=== PATIENT | female | born 1980 | race Asian ===

== ENCOUNTER 2020-04-28 00:08 | Emergency (ER) | payer OTHER ==
[2020-04-28 00:31] VITALS: BP 161/94; PULSE 84; TEMP 98.8; BMI 34.9
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
--- OUTSIDE RECORDS SUMMARY | 2020-04-28 04:56 | XMS ---
:1980 [facility] Providers Name Role Phone MD Leisa Guevara Unavailable Unavailable Pancho Pringle MD Unavailable Unavailable Pancho Pringle MD Unavailable Unavailable Pancho Pringle MD Unavailable Unavailable Pancho Pringle MD Unavailable Unavailable Pancho Pringle MD Unavailable Unavailable Re-disclosure Warning The records that you are about to access may contain information from federally- assisted alcohol or drug abuse programs. If such information is present, then the following federally mandated warning applies: This information has been disclosed to you from records protected by federal confidentiality rules (42 CFR part 2). The federal rules prohibit you from making any further disclosure of this information unless further disclosure is expressly permitted by the written consent of the person to whom it pertains or as otherwise permitted by 42 CFR part 2. A general authorization for the release of medical or other information is NOT sufficient for this purpose. The Federal rules restrict any use of the information to criminally investigate or prosecute any alcohol or drug abuse patient.The records that you are about to access may contain highly sensitive health information, the redisclosure of which is protected by Article 27-F of the [facility] Public Health law. If you continue you may haveaccess to information: Regarding HIV / AIDS; Provided by facilities licensed or operated by the [facility] Office of Mental Health; or Provided by the [facility] Office for People With Developmental Disabilities. If such information is present, then the following [facility] mandated warning applies: This information has been disclosed to you from confidential records which are protected by state law. State law prohibits you from making any further disclosure of this information without the specific written consent of the person to whom it pertains, or as otherwise permitted by law. Any unauthorized further disclosure in violation of state law may result in a fine or correction sentence or both. A general authorization for the release of medical or other information is NOT sufficient authorization for further disclosure. Encounters Encounter Providers Location Date Indications Data Source(s ) Outpatient Attender[facility] 02/03/2020 SHANNEN Guevara 04:30:00 PM [facility] EDT - 02/03/2020 11:59:00 PM EDT Patient discharged. Outpatient Attender: [facility] 01/07/2020 01:44:00 TOÑO Pringle MD PM EDT - 01/07/2020 [facility] 11:59:00 PM EDT Patient discharged. Outpatient Attender: [facility] 12/23/2019 02:15:33 TOÑO Pringle MD PM EDT Hospital Admission cancelled. Disregard status an d admitted date. Outpatient Attender: [facility] 11/04/2019 03:12:23 TOÑO Pringle MD PM EDT - 11/05/2019 [facility] 11:59:00 PM EDT Patient discharged. Medications Medication Brand Start Product Dose Route Administrative Pharmacy [facility] Indications Reaction Description Data Name Date Form Instructions Instructions Source(s) Diphenhydra diphen [id number] active Night Time [facility] mine hydrAM 2015 {tab( [facility] Hydrochlori INE 25 12:58: s)} Syst em de 25 MG mg 43 AM Oral Tablet oral EDT diphenhydrA tablet MINE 25 mg oral tablet May cause drowsiness. Alcohol may inten sify this effect. Use care when operating dangerous machinery.Obtain medical advic e before taking any non-prescription drugs as some may affect the action of this medic ation. Diphenhydramine diphenhydrAMINE 04/13/2016 1 C04436 activ e Night Time [facility] Hydrochloride 25 25 mg oral 12:58:43 AM {tab(s)} [facility] MG Oral Tablet tablet EDT Sys tem diphenhydrAMINE 25 mg oral tablet May cause drowsiness. Alcohol may inten sify this effect. Use care when operating dangerous machinery.Obtain medical advic e before taking any non-prescription drugs as some may affect the action of this medic ation. Ondansetron 4 ondansetron 4 12/23/2014 1 [id number] completed Ondansetron [facility] MG mg oral tablet, 02:14:47 AM {tab(s)} Hydrochloride Health Disintegrating disintegrating EDT System Oral Tablet ondansetron 4 mg oral tablet, disintegrating Ibuprofen 600 IBU 600 mg oral 12/22/2014 1 [id number] complet ed IBU [facility] MG Oral Tablet tablet 04:43:18 PM {tab(s)} Health [Ibu] IBU 600 EDT System mg oral tablet Do not take this drug if you are pregnan t.It is very important that you take or use this exactly as directed. Do not skip d oses or discontinue unless directed by your doctor.May cause drowsiness or dizziness .Obtain medical advice before taking any non-prescription drugs as some may affec t the action of this medication.Take with food or milk. Insurance Providers Payer name Policy type / Policy ID Covered Covered democrat's Policy Plan Coverage type democrat ID relationship to Chao Information chao PENDING WC/NF [id number] SP [id number] [facility] [id number] [facility] 1199 Commercial [id number] Occupational Commercial [id number] Health NR Problems, Conditions, and Diagnoses Code Display Name Description Problem Type Effective Data Sour ce(s) Dates Z86.19 Personal history History of Diagnosis 02/15/2020 S - Ne w of other opportunistic 12:00:00 AM [facility] infectious and infections [facility] parasitic diseases Z09 Encounter for Encounter for Diagnosis 02/15/2020 S - Ne w follow-up examination 12:00:00 AM [facility] examination after following surgery [facility] completed treatment for conditions other than malignant neoplasm Z20.828 Contact with and Close exposure to Diagnosis 02/03/2020 M [facility] - New (suspected) severe acute 04:30:00 PM [facility] exposure to other respiratory EDT Hospit al viral communicable syndrome diseases coronavirus 2 (SARS-CoV-2) B34.2 Coronavirus Coronavirus Diagnosis 01/07/2020 [facility] - New infection, infection, 01:44:00 PM [facility] unspecified unspecified EDT Hospital Surgeries/Procedures Procedure Description Date Indications Data Source(s) XR Chest PA and Left Lateral 02/03/2020 [facility] XR Chest PA and Left Lateral 05:17:00 PM System EDT - 02/03/2020 05:17:00 PM EDT XR Chest PA and Left Lateral 02/12/2017 [facility] XR Chest PA and Left Lateral 01:52:00 AM System EDT - 02/12/2017 01:52:00 AM EDT Computerized axial tomography 02/12/2017 [facility] of brain (procedure) 01:32:00 AM System EDT - 02/12/2017 01:32:00 AM EDT Electrocardiographic 02/12/2017 [facility] procedure (procedure) 01:28:48 AM System EDT - 02/12/2017 01:40:00 AM EDT XR Chest Single AP view 02/12/2017 [facility] 01:28:48 AM System EDT - 02/12/2017 01:28:00 AM EDT US Renal US Renal 04/26/2016 [facility] 04:19:00 PM System EDT - 04/26/2016 04:19:00 PM EDT US Abdomen Complete US 03/23/2016 [facility] Abdomen Complete 12:12:00 AM System EDT - 03/23/2016 12:12:00 AM EDT Urine Test POCT 03/22/2016 [facility] 09:17:27 PM System EDT - 03/22/2016 10:07:27 PM EDT Urinalysis + Microscopic 03/22/2016 [facility] Examination 09:17:27 PM System EDT - 03/22/2016 09:24:00 PM EDT Urine Test POCT 12/23/2014 [facility] 12:55:05 AM System EDT - 12/23/2014 01:01:10 AM EDT Culture Bacteria Throat 12/22/2014 [facility] 04:01:00 PM System EDT - 12/22/2014 04:01:00 PM EDT Results ID Date Data Source [id number] 02/09/2020 02:18:19 AM EDT [facility] Name Value Range Interpretation Description Data Sup porting Code Source(s) Document(s ) StrepGroupADirectAnt Negative Normal (applies Strep Group [facility] igen to non-numeric A Direct Health results) Antigen System Method: ImmunochromatographicRapid Strep Grp A preliminary test only!!! Final result will be confirmed by culture. ID Date Data Source [id number] 02/09/2020 02:18:19 AM EDT [facility] Name Value Range Interpretation Description Data Sup porting Code Source(s) Document(s ) Appearance of HAZY Normal (applies Urine [facility] Urine to non-numeric Appearance Health results) System Color Yellow Normal (applies Color [facility] to non-numeric Health results) System Protein 30 mg/dl Normal (applies Protein [facility] [Mass/volume] in to non-numeric Health Serum or Plasma results) System Glucose,UA NEG Normal (applies Glucose, UA [facility] to non-numeric Health results) System pH.. 6.0 Normal (applies pH.. [facility] {pH_unit to non-numeric Health s} results) System Specific gravity 1.025 Normal (applies Urine Specific [facility] of Urine to non-numeric [facility] results) System BilirubinUrine NEG Normal (applies Bilirubin [facility] to non-numeric Urine Health results) System Ketones NEG Normal (applies Ketones UA [facility] [Mass/volume] in to non-numeric Health Urine results) System Urobilinogen < 2.0 Normal (applies Urobilinogen [facility] [Mass/volume] in to non-numeric UA Health Urine results) System Reference Range: Negative or <=2.0 RedBloodCells 96 {/HPF} Normal (applies Red Blood Cells [facility] to non-numeric Health System results) Nitrate+Nitrite Negative Normal (applies Nitrite [facility] [Mass/volume] in to non-numeric Health S ystem Unspecified results) specimen Leukocytes 3 {/HPF} Normal (applies White Blood Cells [facility] [#/volume] in to non-numeric Health Syst em Unspecified results) specimen by Automated count Leukocyte esterase Trace Abnormal (applies Leukocyte Est erase [facility] [Units/volume] in to non-numeric Concentration [facility] System Urine results) Epithelial cells 2 {/HPF} Normal (applies Epithelial Cells [facility] [Presence] in to non-numeric Health Syst em Unspecified results) specimen by Wet preparation Mucus OCC Normal (applies Mucus [facility] to non-numeric Health System results) Bacteria [Presence] FEW Normal (applies Bacteria [facility] in Unspecified to non-numeric Health Sys tem specimen results) UrineBlood LG(3+) Abnormal (applies Urine Blood [facility] to non-numeric Health System results) ID Date Data Source [id number] 02/09/2020 02:18:19 AM EDT [facility] Name Value Range Interpretation Description Data Sup porting Code Source(s) Document(s ) Erythrocytes 4.02 Below low normal RBC Count [facility] [#/volume] in {10^6_uL Health Blood by } System Automated count Leukocytes 12.7 Above high WBC Count [facility] [#/volume] in {10^3_uL normal Health Unspecified } System specimen by Automated count Hemoglobin 12.6 Normal (applies Hemoglobin [facility] [Mass/volume] in {gm/dL} to non-numeric Health Blood results) System Erythrocyte mean 89.1 fl Normal (applies MCV [facility] corpuscular to non-numeric Health volume [Entitic results) System volume] by Automated count Hematocrit 35.8 % Below low normal Hematocrit [facility] [Volume Health Fraction] of System Blood Erythrocyte mean 35.2 Above high MCHC [facility] corpuscular {gm/dL} normal Health hemoglobin System concentration [Mass/volume] by Automated count Erythrocyte 12.5 % Normal (applies RDW-CV [facility] distribution to non-numeric Health width [Entitic results) System volume] by Automated count Erythrocyte mean 31.3 pg Above high MCH [facility] corpuscular normal Health hemoglobin System [Entitic mass] by Automated count Platelet mean 11.6 fl Normal (applies MPV [facility] volume [Entitic to non-numeric Health volume] in Blood results) System by Automated count Nucleated 0.0 Normal (applies NRBC % [facility] erythrocytes {/100_WB to non-numeric Health [#/volume] in C} results) System Body fluid Platelets 155 Normal (applies Platelet Count [facility] [#/volume] in {10^3_uL to non-numeric Health Plasma by } results) System Automated count Neutrophils 9.8 Above high Neutrophil # [facility] [#/volume] in {10^3_uL normal Health Body fluid } System NRBC# 0.00 Normal (applies NRBC # [facility] {10^6_uL to non-numeric Health } results) System Neutrophils/100 77.1 % Above high Neutrophil % [facility] leukocytes in normal Health Blood by System Automated count Lymphocytes 15.1 % Normal (applies Lymphocyte % [facility] [#/volume] in to non-numeric Health Blood by results) System Automated count Monocytes/100 6.6 % Normal (applies Monocyte % [facility] leukocytes in to non-numeric Health Blood results) System Lymphocyte 1.9 Normal (applies Lymphocyte # [facility] percent {10^3_uL to non-numeric Health differential } results) System count (procedure) Eosinophils/100 0.6 % Above high Eosinophil % [facility] leukocytes in normal Health Unspecified System specimen Eosinophils 0.08 Normal (applies Eosinophil # [facility] [#/volume] in {10^3_uL to non-numeric Health Blood } results) System Monocytes 0.8 Normal (applies Monocyte # [facility] [#/volume] in {10^3_uL to non-numeric Health Blood by Manual } results) System count ImmatureGranuloc 0.3 % Normal (applies Immature [facility] ytes% to non-numeric Granulocytes % Health results) System Basophils 0.04 Normal (applies Basophil # [facility] [#/volume] in {10^3_uL to non-numeric Health Blood by } results) System Automated count Basophils/100 0.3 % Normal (applies Basophil % [facility] leukocytes in to non-numeric Health Unspecified results) System specimen by Manual count ImmatureGranuloc 0.04 Normal (applies Immature [facility] ytes# {10^3_uL to non-numeric Granulocytes # Health } results) System ID Date Data Source [id number] 02/09/2020 02:18:19 AM EDT [facility] Name Value Range Interpretation Description Data Sup porting Code Source(s) Document(s ) Potassium 3.7 Normal (applies Potassium, [facility] [Mass/volume] in mmol/L to non-numeric Serum Health Serum or Plasma results) System Sodium 139 Normal (applies Sodium, Serum [facility] [Moles/volume] in mmol/L to non-numeric Health Serum or Plasma results) System Chloride 105 Normal (applies Chloride, [facility] [Moles/volume] in mmol/L to non-numeric Serum Health Serum or Plasma results) System Carbon dioxide, 24.1 Normal (applies CO2, Serum [facility] total mmol/L to non-numeric Health [Moles/volume] in results) System Serum or Plasma TotalProtein 6.3 Below low normal Total Protein [facility] mg/dl Health System Glucose 119 Above high Glucose, [facility] [Mass/volume] in mg/dL normal Serum Health Serum or Plasma System Urea nitrogen 11 Normal (applies Blood Urea [facility] [Mass/volume] in mg/dl to non-numeric Nitrogen, Health Serum or Plasma results) Serum System Creatinine 0.83 Normal (applies Creatinine, [facility] [Mass/volume] in mg/dl to non-numeric Serum Health Serum or Plasma results) System Alkaline 35 Below low normal Alkaline [facility] phosphatase {IU/L} Phosphatase, Health isoenzymes Serum System [Enzymatic activity/volume] in Serum or Plasma by Heat stability Bilirubin.total 0.5 Normal (applies Bilirubin, [facility] [Mass/volume] in mg/dl to non-numeric Serum Total Health Serum or Plasma results) System Aspartate 18 Normal (applies Aspartate [facility] aminotransferase {IU/L} to non-numeric Transaminase, Heal th [Enzymatic results) Serum System activity/volume] in Serum or Plasma by With P-5'-P DirectBilirubin 0.1 Normal (applies Direct [facility] mg/dl to non-numeric Bilirubin Health results) System Albumin 4.1 Normal (applies Albumin, [facility] [Mass/volume] in {gm/dl} to non-numeric Serum Health Serum or Plasma results) System I.Phosphorus 4.0 Normal (applies I. Phosphorus [facility] mg/dl to non-numeric Health results) System Alanine 22 Normal (applies Alanine [facility] aminotransferase {IU/L} to non-numeric Aminotransfer Heal th [Enzymatic results) ase, Serum System activity/volume] in Serum or Plasma Calcium 8.9 Normal (applies Calcium, [facility] [Mass/volume] in mg/dl to non-numeric Total Serum Health Serum or Plasma results) System Urate 4.8 Normal (applies Uric Acid, [facility] [Mass/volume] in mg/dl to non-numeric Serum Health Serum or Plasma results) System Anion gap in Serum 9.90 Normal (applies Anion Gap [facility] or Plasma mmol/L to non-numeric Health results) System A/GRatio 1.86 Normal (applies A/G Ratio [facility] to non-numeric Health results) System Glomerular 79.33 Normal (applies GFR [facility] filtration to non-numeric Health rate/1.73 sq results) System M.predicted [Volume Rate/Area] in Serum or Plasma by Creatinine-based formula (CKD-EPI) eGFR will provide clinicians with a more accurate indicator of renal function then the serum creatinine. The eGFR is automa tically calculated from an empiric formula (endorsed by the National Kidney [employer] ion) which incorporates age, sex, and race.Clinicians may notice surprisingly low GFR's with serum creatinine valueswithin normal range- particularly in elderly wo men (with low muscle mass).In the hospital setting, the eGFR should add an element of safety in drug dosing, in assessing the risk of IV contrast administration, and in assessing vascular risk.The NKF staging system is as follows:Normal: eGFR >90 with no kidney markersStage 1: eGFR >90 with kidney markers*Stage 2: eGFR 60- 89Stage 3: eGFR 30-59Stage 4: eGFR 15-29Stage 5: eGFR <15 (usually requir ing dialysis)*Markers include: Proteinuria, Hematuria, abnormal imaging-studies, or other blood or urine test abnormalities ID Date Data Source [id number] 02/09/2020 02:18:19 AM EDT [facility] Name Value Range Interpretation Description Data Source(s ) Supporting Code Document(s ) Lipase 33 U/L Normal (applies to Lipase, Serum [facility] [Enzymatic non-numeric Health System activity/vo results) lume] in Serum or Plasma ID Date Data Source [id number] 02/09/2020 02:18:19 AM EDT [facility] Name Value Range Interpretation Description Data Sup porting Code Source(s) Document(s ) Erythrocytes 4.76 Normal (applies RBC Count [facility] [#/volume] in {10^6_uL to non-numeric Health Blood by } results) System Automated count Hemoglobin 14.9 Normal (applies Hemoglobin [facility] [Mass/volume] in {gm/dL} to non-numeric Health Blood results) System Leukocytes 14.4 Above high normal WBC Count [facility] [#/volume] in {10^3_uL Health Unspecified } System specimen by Automated count Hematocrit 41.6 % Normal (applies Hematocrit [facility] [Volume to non-numeric Health Fraction] of results) System Blood Erythrocyte mean 87.4 fl Normal (applies MCV [facility] corpuscular to non-numeric Health volume [Entitic results) System volume] by Automated count Erythrocyte mean 35.8 Above high normal MCHC [facility] corpuscular {gm/dL} Health hemoglobin System concentration [Mass/volume] by Automated count Erythrocyte 13.0 % Normal (applies RDW-CV [facility] distribution to non-numeric Health width [Entitic results) System volume] by Automated count Erythrocyte mean 31.3 pg Above high normal MCH [facility] corpuscular Health hemoglobin System [Entitic mass] by Automated count Platelet mean 11.1 fl Normal (applies MPV [facility] volume [Entitic to non-numeric Health volume] in Blood results) System by Automated count Platelets 226 Normal (applies Platelet [facility] [#/volume] in {10^3_uL to non-numeric Count Health Plasma by } results) System Automated count Nucleated 0.0 Normal (applies NRBC % [facility] erythrocytes {/100_WB to non-numeric Health [#/volume] in C} results) System Body fluid NRBC# 0.00 Normal (applies NRBC # [facility] {10^6_uL to non-numeric Health } results) System ID Date Data Source [id number] 02/09/2020 02:18:19 AM EDT [facility] System Name Value Range Interpretation Description Data Sup porting Code Source(s) Document(s ) Sodium 139 Normal (applies Sodium, Serum [facility] [Moles/volume] in mmol/L to non-numeric Health Serum or Plasma results) System Potassium 3.5 Normal (applies Potassium, [facility] [Mass/volume] in mmol/L to non-numeric Serum Health Serum or Plasma results) System Carbon dioxide, 21.0 Normal (applies CO2, Serum [facility] total mmol/L to non-numeric Health [Moles/volume] in results) System Serum or Plasma Chloride 104 Normal (applies Chloride, [facility] [Moles/volume] in mmol/L to non-numeric Serum Health Serum or Plasma results) System Glucose 87 Normal (applies Glucose, [facility] [Mass/volume] in mg/dL to non-numeric Serum Health Serum or Plasma results) System TotalProtein 7.6 Normal (applies Total Protein [facility] mg/dl to non-numeric Health results) System Urea nitrogen 9 mg/dl Normal (applies Blood Urea [facility] [Mass/volume] in to non-numeric Nitrogen, Health Serum or Plasma results) Serum System Creatinine 0.86 Normal (applies Creatinine, [facility] [Mass/volume] in mg/dl to non-numeric Serum Health Serum or Plasma results) System DirectBilirubin 0.1 Normal (applies Direct [facility] mg/dl to non-numeric Bilirubin Health results) System Bilirubin direct 0.7 Normal (applies Bilirubin, [facility] and total panel mg/dl to non-numeric Serum Total Health [Mass/volume] - results) System Serum or Plasma Alkaline 38 Below low normal Alkaline [facility] phosphatase {IU/L} Phosphatase, Health isoenzymes Serum System [Enzymatic activity/volume] in Serum or Plasma by Heat stability Aspartate 26 Normal (applies Aspartate [facility] aminotransferase {IU/L} to non-numeric Transaminase, Heal th [Enzymatic results) Serum System activity/volume] in Serum or Plasma by With P-5'-P Albumin 4.9 Normal (applies Albumin, [facility] [Mass/volume] in {gm/dl} to non-numeric Serum Health Serum or Plasma results) System Alanine 33 Normal (applies Alanine [facility] aminotransferase {IU/L} to non-numeric Aminotransfer [facility] th [Enzymatic results) ase, Serum System activity/volume] in Serum or Plasma I.Phosphorus 3.8 Normal (applies I. Phosphorus [facility] mg/dl to non-numeric Health results) System Calcium 9.8 Normal (applies Calcium, [facility] [Mass/volume] in mg/dl to non-numeric Total Serum Health Serum or Plasma results) System Urate 5.5 Normal (applies Uric Acid, [facility] [Mass/volume] in mg/dl to non-numeric Serum Health Serum or Plasma results) System A/GRatio 1.81 Normal (applies A/G Ratio [facility] to non-numeric Health results) System Anion gap in Serum 14.00 Normal (applies Anion Gap [facility] or Plasma mmol/L to non-numeric Health results) System Glomerular 75.57 Normal (applies GFR [facility] filtration to non-numeric Health rate/1.73 sq results) System M.predicted [Volume Rate/Area] in Serum or Plasma by Creatinine-based formula (CKD-EPI) eGFR will provide clinicians with a more accurate indicator of renal function then the serum creatinine. The eGFR is automa tically calculated from an empiric formula (endorsed by the National Kid[employer] ion) which incorporates age, sex, and race.Clinicians may notice surprisingly low GFR's with serum creatinine valueswithin normal range- particularly in elderly wo men (with low muscle mass).In the hospital setting, the eGFR should add an element of safety in drug dosing, in assessing the risk of IV contrast administration, and in assessing vascular risk.The NKF staging system is as follows:Normal: eGFR >90 with no kidney markersStage 1: eGFR >90 with kidney markers*Stage 2: eGFR 60- 89Stage 3: eGFR 30-59Stage 4: eGFR 15-29Stage 5: eGFR <15 (usually requir ing dialysis)*Markers include: Proteinuria, Hematuria, abnormal imaging-studies, or other blood or urine test abnormalities ID Date Data Source [id number] 02/09/2020 02:18:19 AM [facility] System Name Value Range Interpretation Description Data Sup porting Code Source(s) Document(s ) Color Colorless Normal (applies Color [facility] to non-numeric Health results) System Appearance of CLEAR Normal (applies Urine [facility] Urine to non-numeric Appearance Health results) System Specific gravity 1.005 Normal (applies Urine [facility] of Urine to non-numeric Specific Health results) [facility] Glucose,UA NEG Normal (applies Glucose, UA [facility] to non-numeric Health results) System pH.. 7.0 Normal (applies pH.. [facility] {pH_units} to non-numeric Health results) System BilirubinUrine NEG Normal (applies Bilirubin [facility] to non-numeric Urine [facility] results) System Protein NEG Normal (applies Protein [facility] [Mass/volume] in to non-numeric Health Serum or Plasma results) System Ketones NEG Normal (applies Ketones UA [facility] [Mass/volume] in to non-numeric Health Urine results) System Urobilinogen < 2.0 Normal (applies Urobilinogen [facility] [Mass/volume] in to non-numeric UA Health Urine results) System Reference Range: Negative or <=2.0 Leukocyte esterase NEG Normal (applies Leukocyte Marcelle ase [facility] [Units/volume] in to non-numeric Concentration Hea lt System Urine results) Nitrate+Nitrite Negative Normal (applies Nitrite [facility] [Mass/volume] in to non-numeric Health S ystem Unspecified specimen results) Epithelial cells 2 {/HPF} Normal (applies Epithelial Cells [facility] [Presence] in to non-numeric Health Syst em Unspecified specimen results) by Wet preparation RedBloodCells 19 {/HPF} Normal (applies Red Blood Cells [facility] to non-numeric Health System results) Leukocytes < 1 /HPF Normal (applies White Blood Cells Kaden vladimir [#/volume] in to non-numeric Health Syst em Unspecified specimen results) by Automated count UrineBlood MOD(2+) Abnormal (applies Urine Blood [facility] to non-numeric [facility] System results) Bacteria [Presence] FEW Normal (applies Bacteria [facility] in Unspecified to non-numeric Health Sys tem specimen results) ID Date Data Source [id number] 02/09/2020 02:18:19 AM EDT [facility] Name Value Range Interpretation Description Data Sup porting Code Source(s) Document(s ) aPTT in Blood 27.8 Normal (applies Activated [facility] by Coagulation {Seconds to non-numeric Partial Health assay } results) Thromboplastin System Time ID Date Data Source [id number] 02/09/2020 02:18:19 AM EDT [facility] Name Value Range Interpretation Description Data Sup porting Code Source(s) Document(s ) Prothrombintim 10.20 Normal (applies Prothrombin [facility](PT) {seconds to non-numeric time (PT) Health System } results) INR in Blood 0.91 Normal (applies INR Result [facility] by Coagulation {Ratio} to non-numeric Health Sys tem assay results) Normal = 0.7-1.1Therapeutic = 2.0-3.0Mec hanical Heart = 3.0-4.5 ID Date Data Source [id number] 02/09/2020 02:18:19 AM EDT [facility] System Name Value Range Interpretation Description Data Sup porting Code Source(s) Document(s ) Leukocytes 10.7 Normal (applies WBC Count [facility] [#/volume] in {10^3_uL to non-numeric Health Unspecified } results) System specimen by Automated count Erythrocytes 4.24 Normal (applies RBC Count [facility] [#/volume] in {10^6_uL to non-numeric Health Blood by } results) System Automated count Hemoglobin 12.9 Normal (applies Hemoglobin [facility] [Mass/volume] in {gm/dL} to non-numeric Health Blood results) System Hematocrit 37.1 % Normal (applies Hematocrit [facility] [Volume to non-numeric Health Fraction] of results) System Blood Erythrocyte mean 87.5 fl Normal (applies MCV [facility] corpuscular to non-numeric Health volume [Entitic results) System volume] by Automated count Erythrocyte mean 30.4 pg Normal (applies MCH [facility] corpuscular to non-numeric Health hemoglobin results) System [Entitic mass] by Automated count Erythrocyte mean 34.8 Normal (applies MCHC [facility] corpuscular {gm/dL} to non-numeric Health hemoglobin results) System concentration [Mass/volume] by Automated count Platelets 173 Normal (applies Platelet Count [facility] [#/volume] in {10^3_uL to non-numeric Health Plasma by } results) System Automated count Erythrocyte 12.9 % Normal (applies RDW-CV [facility] distribution to non-numeric Health width [Entitic results) System volume] by Automated count Platelet mean 11.2 fl Normal (applies MPV [facility] volume [Entitic to non-numeric Health volume] in Blood results) System by Automated count Nucleated 0.0 Normal (applies NRBC % [facility] erythrocytes {/100_WB to non-numeric Health [#/volume] in C} results) System Body fluid Neutrophils/100 63.4 % Normal (applies Neutrophil % Kaden vladimir leukocytes in to non-numeric Health Blood by results) System Automated count NRBC# 0.00 Normal (applies NRBC # [facility] {10^3_uL to non-numeric Health } results) System Neutrophils 6.8 Normal (applies Neutrophil # [facility] [#/volume] in {10^3_uL to non-numeric Health Body fluid } results) System Lymphocytes 26.8 % Normal (applies Lymphocyte % [facility] [#/volume] in to non-numeric Health Blood by results) System Automated count Monocytes/100 6.9 % Normal (applies Monocyte % [facility] leukocytes in to non-numeric Health Blood results) System Lymphocyte 2.9 Normal (applies Lymphocyte # [facility] percent {10^3_uL to non-numeric Health differential } results) System count (procedure) Monocytes 0.7 Normal (applies Monocyte # [facility] [#/volume] in {10^3_uL to non-numeric Health Blood by Manual } results) System count Eosinophils/100 1.9 % Normal (applies Eosinophil % Kaden vladimir leukocytes in to non-numeric Health Unspecified results) System specimen Basophils/100 0.3 % Normal (applies Basophil % [facility] leukocytes in to non-numeric Health Unspecified results) System specimen by Manual count Eosinophils 0.20 Normal (applies Eosinophil # [facility] [#/volume] in {10^3_uL to non-numeric Health Blood } results) System Basophils 0.03 Normal (applies Basophil # [facility] [#/volume] in {10^3_uL to non-numeric Health Blood by } results) System Automated count ImmatureGranuloc 0.07 Normal (applies Immature [facility] ytes# {10^3_uL to non-numeric Granulocytes # Health } results) System ImmatureGranuloc 0.7 % Normal (applies Immature [facility] ytes% to non-numeric Granulocytes % Health results) System ID Date Data Source [id number] 02/09/2020 02:18:19 AM EDT Kas[facility]du[facility] System Name Value Range Interpretation Description Data Sup porting Code Source(s) Document(s ) Potassium 3.8 Normal (applies Potassium, [facility] [Mass/volume] in mmol/L to non-numeric Serum Health Serum or Plasma results) System Sodium 139 Normal (applies Sodium, Serum [facility] [Moles/volume] in mmol/L to non-numeric Health Serum or Plasma results) System Chloride 103 Normal (applies Chloride, [facility] [Moles/volume] in mmol/L to non-numeric Serum Health Serum or Plasma results) System Carbon dioxide, 26.7 Normal (applies CO2, Serum [facility] total mmol/L to non-numeric Health [Moles/volume] in results) System Serum or Plasma TotalProtein 6.7 Normal (applies Total Protein [facility] mg/dl to non-numeric Health results) System Glucose 100 Normal (applies Glucose, [facility] [Mass/volume] in mg/dL to non-numeric Serum Health Serum or Plasma results) System Urea nitrogen 12 Normal (applies Blood Urea [facility] [Mass/volume] in mg/dl to non-numeric Nitrogen, Health Serum or Plasma results) Serum System Creatinine 0.81 Normal (applies Creatinine, [facility] [Mass/volume] in mg/dl to non-numeric Serum Health Serum or Plasma results) System Alkaline 30 Below low normal Alkaline [facility] phosphatase {IU/L} Phosphatase, Health isoenzymes Serum System [Enzymatic activity/volume] in Serum or Plasma by Heat stability Bilirubin.total 0.5 Normal (applies Bilirubin, [facility] [Mass/volume] in mg/dl to non-numeric Serum Total Health Serum or Plasma results) System DirectBilirubin 0.1 Normal (applies Direct [facility] mg/dl to non-numeric Bilirubin Health results) System Aspartate 21 Normal (applies Aspartate [facility] aminotransferase {IU/L} to non-numeric Transaminase, Heal th [Enzymatic results) Serum System activity/volume] in Serum or Plasma by With P-5'-P Albumin 4.3 Normal (applies Albumin, [facility] [Mass/volume] in {gm/dl} to non-numeric Serum Health Serum or Plasma results) System I.Phosphorus 3.2 Normal (applies I. Phosphorus [facility] mg/dl to non-numeric Health results) System Alanine 31 Normal (applies Alanine [facility] aminotransferase {IU/L} to non-numeric Aminotransfer Heal th [Enzymatic results) ase, Serum System activity/volume] in Serum or Plasma Calcium 9.1 Normal (applies Calcium, [facility] [Mass/volume] in mg/dl to non-numeric Total Serum Health Serum or Plasma results) System A/GRatio 1.79 Normal (applies A/G Ratio [facility] to non-numeric Health results) System Urate 4.8 Normal (applies Uric Acid, [facility] [Mass/volume] in mg/dl to non-numeric Serum Health Serum or Plasma results) System Anion gap in Serum 9.30 Normal (applies Anion Gap Kaden vladimir or Plasma mmol/L to non-numeric Health results) System Glomerular 80.55 Normal (applies GFR [facility] filtration to non-numeric Health rate/1.73 sq results) System M.predicted [Volume Rate/Area] in Serum or Plasma by Creatinine-based formula (CKD-EPI) eGFR will provide clinicians with a more accurate indicator of renal function then the serum creatinine. The eGFR is automa tically calculated from an empiric formula (endorsed by the National [employer] ion) which incorporates age, sex, and race.Clinicians may notice surprisingly low GFR's with serum creatinine valueswithin normal range- particularly in elderly wo men (with low muscle mass).In the hospital setting, the eGFR should add an element of safety in drug dosing, in assessing the risk of IV contrast administration, and in assessing vascular risk.The NKF staging system is as follows:Normal: eGFR >90 with no kidney markersStage 1: eGFR >90 with kidney markers*Stage 2: eGFR 60- 89Stage 3: eGFR 30-59Stage 4: eGFR 15-29Stage 5: eGFR <15 (usually requir ing dialysis)*Markers include: Proteinuria, Hematuria, abnormal imaging-studies, or other blood or urine test abnormalities ID Date Data Source [id number] 02/09/2020 02:18:19 AM EDT [facility] System Name Value Range Interpretation Description Data Sup porting Code Source(s) Document(s ) TroponinIQuantitative 0.03 Normal (applies Troponin I [facility] ng/ml to non-numeric Quantitative Health results) System ID Date Data Source [id number] 02/09/2020 02:18:19 AM EDT [facility] System Name Value Range Interpretation Code Description Data Vita rce(s) Supporting Document(s ) NRD-Dimer < 150 Normal (applies to NR D-Dimer High Kaden vladimir HighSensi non-numeric Sensitivity Health System tivity results) D-Dimer result below 230 ng/ml has high negative predictive value for diagnosing DVT. A positive D-Dimer test, although helpfu l, is not by itself diagnostic of DIC. D-Dimer for DIC must be interpreted in t he context of platelet count, fibrinogen, PT/INR, PTT, and clinical feature of th e patient. ID Date Data Source [id number] 02/09/2020 02:18:19 AM EDT [facility] System Name Value Range Interpretation Description Data Sup porting Code Source(s) Document(s ) Creatine 108 Normal (applies Creatine [facility] kinase.MB {IU/L} to non-numeric Kinase, Serum Health Syst em [Mass/volume results) ] in Serum or Plasma ID Date Data Source [id number] 02/09/2020 02:18:19 AM EDT [facility] System Name Value Range Interpretation Description Data Sup porting Code Source(s) Document(s ) 62662-6 POSITIVE Testing Abnormal (applies COVID-19.. [facility] was performed to non-numeric Health Syst em using [employer] ID results) NOW COVID-19, an isothermal nucleic acid amplification technology for the qualitative detection of nucleic acid from the SARS-CoV-2 viral RNA in respiratory specimens. The ID NOW COVID-19 test has been approved by the Food and Drug Administration (FDA) under an Emergency Use Authorization for use by authorized laboratories. ID Date Data Source [id number] 02/09/2020 02:18:19 AM EDT [facility] System Name Value Range Interpretation Description Data Source(s ) Supporting Code Document(s ) 54483-1 POSITIVE Abnormal (applies SARS COV2 Ab [facility] to non-numeric (IgG) Health System results) Reference range: NegativeThis test is in tended for use as an aid in identifyingindividuals with an adaptive immune response to SARS-CoV-2, indicating recent or prior infection. Results are f or the detection of SARS-CoV-2 antibodies.IgG antibodies to SARS-CoV-2 are generally d etectable in blood several days after initial infection, althoughthe duration of time antibodies are present post-infectionis not well characterized. At this time, it is unknown for how long antibodies persist following infectionand if the presence o f antibodies confers protectiveimmunity. Individuals may have detectable virus by molecular testing present for several weeks followingseroconversion. Negative result s do not preclude eezahEXYI-AcU-5 infection. This test should not be used to diagnose acute SARS-CoV-2 infection. If acute infectionis suspected, direct testing by molecular methods for SARS-CoV-2 is necessary. False positive results for th etest may occur due to cross-reactivity from pre-existingantibodies or other possible causes. Please review the Fact Sheets available for health care providers and patients using the following websites: [email or web address]/home/Covid-19/HCP/a ntibody/fact-sheet1 [employer]/home/Covid-19/Patie nts/antibody/fact-gcbmq0Lcsp test has been authorized by the FDA under anEmergency Use Authorization (EUA) for use by authorizedlaboratories. The FDA authoriz ed labeling is available on the [employer] website:[email or web address]. For additional information please refer to http://education.46elks/faq/LGP875(This link is being provided for informational/educationalpu rposes only.) THIS TEST WAS PERFORMED AT:[employer] [id number] DONATO,MDReported Date and Time - 01/08/20 06:51 ID Date Data Source [id number] 02/03/2020 05:17:00 PM EDT [facility] STUDY: X-RAY CHESTREASON FOR EXAM: Devorah alcaraz, 39 years old. HX OF COVID-19-R/OPNEUMONIA;TECHNIQUE: PA an d lateral viewsCOMPARISON: January. ___FINDINGS:PA and lateral views of the chest demonstratesno focalinfiltrate or effusi on. Heart size and mediastinum are withinnormal limits. Soft tissues and nathalie nystructures areunremarkable.IMPRESSION: No focal infiltrate.Electronically Signed:Rabia Ragland, at 17:21 EDTTel , Service support [phone] Name Value Range Interpretation Code Description Data Vita rce(s) Supporting Document(s ) ID Date Data Source [id number] 11/05/2019 10:44:00 AM EDT [facility] Name Value Range Interpretation Code Description Data Vita rce(s) Supporting Document(s ) COVID-19.. [facility] This lab was ordered by [facility] and reported by Kasandra Quiñonez. Procedure Patient Treatment Plan of Care Planned Activity Planned Date Details Description Data Source (s) Diphenhydramine 04/13/2016 [facility]alth Hydrochloride 25 MG Oral 12:58:43 AM EDT System Tablet Diphenhydramine 04/13/2016 [facility] Hydrochloride 25 MG Oral 12:58:43 AM EDT System Tablet Ondansetron 4 MG 12/23/2014 [facility] Disintegrating Oral Tablet 02:14:47 AM EDT System Ibuprofen 600 MG Oral 12/22/2014 [facility] Tablet [Ibu] 04:43:18 PM EDT System
== END 2020-04-28 01:15 | disposition home or self-care (01) ==
LOC: JER 00:08
DX: Z04.1 Encounter for examination and observation following transport accident (principal)
CPT/HCPCS: 99283-25